=== PATIENT | female | born 1935 | race Caucasian/White ===

== ENCOUNTER → 2023-07-07 | Emergency (ER) | payer MEDICARE ==
[~2023-07-07] VITALS: Ht 154.9 cm; Wt 38.2 kg
[~2023-07-07] MED LIST: CEPH-585 PO; NAPR-56 PO; SULF1TAB49 PO
[2023-07-07 15:33] VITALS: TEMP 97.8
[2023-07-07 17:19] VITALS: BP 175/87; PULSE 60; RESP 16; O2SAT 100
== END | disposition home or self-care (01) ==
LOC: ER 15:26
DX: L03.031 Cellulitis of right toe (principal)
CPT/HCPCS: 99283